=== PATIENT | male | born 1955 | race Caucasian/White ===

== ENCOUNTER 2018-06-22 11:45 | Emergency (ER) | payer OTHER ==
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
== END 2018-06-22 13:58 | disposition home or self-care (01) ==
LOC: ER 11:45
DX: M54.2 Cervicalgia (principal); R51 Headache; V89.2XXA Person injured in unspecified motor-vehicle accident, traffic, initial encounter; Y93.89 Activity, other specified; Y92.410 Unspecified street and highway as the place of occurrence of the external cause; Y99.8 Other external cause status
CPT/HCPCS: 99284; 96372; 70450; 72125; J1885; Z7502